=== PATIENT | female | born 1965 | race Caucasian/White ===

== ENCOUNTER 2017-09-12 14:15 | Emergency (ER) | payer BC, OTHER ==
[2017-09-12] MEDS ORDERED: PROVENTIL 2.5 MG/3 ML NEB IH ONE ×2 (14:47→15:22)
[2017-09-12] MEDS ORDERED: ZOFRAN ODT 4 MG PO ONE (14:53)
--- NOTE | 2017-09-12 14:53 | ERPHSYRPT ---
- History of Present Illness Time Seen by Provider: 09/12/17 14:41 Source: patient, family Patient Subjective Stated Complaint: PT REPORTS ALL OVER BODY ACHES BEGINNING YESTERAY-NASAL CONGESTION CLEAR IN COLOR-REPORTS UNSURE OF FEVER BUT FEELS HOT Triage Nursing Assessment: PT PINK WARM AND [id number] EASY AND NONLABORED- NO RETRACTIONS NOTED-PT STATES THAT SHE HAS ALL OVER BODY ACHES-NO COUGH NOTED DURING TRIAGE Physician History: CC: flu Hx: 52 y/o patient of dr Traylor with flu symptoms since last evening. She has fever, chills, cough, mylagias, headache. Took NSAIDS and fever now better. She vomited once. No diarrhea. She is a smoker. Timing/Duration: yesterday Allergies/Adverse Reactions: No Known Drug Allergies Allergy (Unverified 09/12/17 14:48) Home Medications: Dextroamphetamine/Amphetamine [Adderall 10 mg Tablet] 10 mg PO DAILY 09/12/17 [ History] Hx Tetanus, Diphtheria Vaccination/Date Given: Yes Hx Influenza Vaccination/Date Given: No Hx Pneumococcal Vaccination/Date Given: No Immunizations Up to Date: Yes - Review of Systems Constitutional: Fever, Chills, Malaise Eyes: No Symptoms Ears, Nose, & Throat: Nose Congestion, Throat Pain Respiratory: Cough Cardiac: No Chest Pain Abdominal/Gastrointestinal: Vomiting (X1), No Abdominal Pain, No Diarrhea Genitourinary Symptoms: No Dysuria Skin: No Rash Neurological: Headache All Other Systems: Reviewed and Negative - Past Medical History Pertinent Past Medical History: Yes Psycho-Social History: Attention Deficit Disorder - Past Surgical History Past Surgical History: Yes Musculoskeletal: Orthopedic Surgery - Social History Smoking Status: Current every day smoker How long have you smoked: YRS Exposure to second hand smoke: No Drug Use: none Patient Lives Alone: No - Female History Hx Now: No - Nursing Vital Signs Nursing Vital Signs: Initial Vital Signs Temperature 98.8 F 09/12/17 14:35 Pulse Rate 87 09/12/17 14:35 Respiratory Rate 20 09/12/17 14:35 Blood Pressure 113/80 09/12/17 14:35 O2 Sat by Pulse Oximetry 99 09/12/17 14:35 Pain Scale Pain Intensity 10 - Physical Exam General Appearance: alert Eye Exam: PERRL/EOMI Ears, Nose, Throat Exam: normal ENT inspection, TMs normal, moist mucous membranes Neck Exam: normal inspection, non-tender, supple Respiratory Exam: normal breath sounds, lungs clear Cardiovascular Exam: regular rate/rhythm, No murmur Gastrointestinal/Abdomen Exam: soft, No tenderness, No distention Extremity Exam: normal inspection, normal range of motion Neurologic Exam: alert, oriented x 3, cooperative, communication manager II-XII 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, nml station & gait, sensation nml, No motor deficits Skin Exam: warm, dry, No rash SpO2 Interpretation: normal SpO2: 99 Oxygen Delivery: Room Air - Course Nursing assessment & vital signs reviewed: Yes - Radiology Exams cxr X-ray Interpretation: Teleradiologist Report, Negative Ordered Tests: Active Orders 24 hr Category Date Time Status CHEST 2 VIEWS (PA AND LAT) Stat Exams 09/12/17 14:47 Completed Respiratory Nebulizer STAT RT 09/12/17 14:47 Active Medication Summary Discontinued Medications Generic Name Dose Route Start Last Admin Trade Name Freq PRN Reason Stop Dose Admin Albuterol Sulfate 2.5 mg 09/12/17 14:47 Proventil 2.5 Mg/3 Ml Neb IH 09/12/17 14:48 STAT ONE Ondansetron HCl 4 mg 09/12/17 14:53 Zofran Odt 4 Mg PO 09/12/17 14:54 STAT ONE - Progress Progress Note: 09/12/17 15:20 She has flu like symptoms. Stable. Symptom treatment encouraged. Offered tamiflu but she declines after discussing potential side effects. Counseled pt/family regarding: diagnosis, need for follow-up, rad results, smoking cessation - Departure Time of Disposition: 15:20 Departure Disposition: Home Clinical Impression: Influenza-like illness, Smoker Condition: Stable Critical Care Time: No Referrals: BERNADETTE TRAYLOR [Primary Care Provider] - Instructions: Flu, Adult (DC), Quitting Smoking Additional Instructions: UPPER RESPIRATORY INFECTIONS 1. The signs and symptoms of a cold may last up to 10 days. These illnesses are due to viruses which are not treatable with antibiotics. 2. The following suggestions can aid in recovery and to minimize symptoms: A. Increase fluid intake. B. Acetaminophen or Ibuprofen as directed. C. Avoid smoking environments as this will increase the risk of developing pneumonia. D. For children, may use a cool mist vaporizer in the child's room. 3. Contact your Family Physician if you note: A. Persisten fever >103 for more than 3 days B. Breathing difficulty C. Productive cough of yellow/green sputum D. Illness greater than 7 days E. Persistent vomiting F. Stiff neck Rx albuterol MDI- sent to [facility]. Push oral fluids. Follow up with Dr Traylor if not better in one week or for concerns. Prescriptions: Albuterol Sulfate [Albuterol Sulfate Hfa] 2 puff IH Q4-6HPRN PRN #1 [email or web address] PRN Reason: cough or wheeze
--- NOTE | 2017-09-12 15:12 | XRAY ---
Indication: Cough, congestion, and bodyaches. Comparison: None PA/lateral chest demonstrates normal heart and lungs with a few incidental calcified granulomas. Bony thorax intact with previous right shoulder surgery.
[2017-09-12] MEDS ORDERED: ZOFRAN ODT 4 MG ONE (15:21)
[2017-09-12 15:33] VITALS: BP 134/87
[2017-09-12 15:40] VITALS: PULSE 80; O2SAT 98
== END 2017-09-12 15:52 | disposition home or self-care (01) ==
LOC: ED 14:15
DX: J11.1 Influenza due to unidentified influenza virus with other respiratory manifestations (principal); F17.200 Nicotine dependence, unspecified, uncomplicated
CPT/HCPCS: 71046; 94640; 99283; 99284; Q0162; A9270-GY

== ENCOUNTER 2017-09-19 07:22 | Emergency (ER) | payer OTHER ==
[2017-09-19 07:35] VITALS: O2SAT 97
[2017-09-19] MEDS ORDERED: Vistaril 50 MG/ML IM ONE (07:50)
[2017-09-19] MEDS ORDERED: TORAdol 30 mg Injection IV ONE (07:51)
[2017-09-19] MEDS ORDERED: Lactated Ringers 1,000 ML IV ONE ×2 (07:52→08:00)
[2017-09-19] MEDS ORDERED: DUONEB 0.5-3 MG/3 ml Neb IH ONE ×2 (07:52→08:10)
--- NOTE | 2017-09-19 07:59 | ERPHSYRPT ---
- History of Present Illness Time Seen by Provider: 09/19/17 07:32 Source: patient, family Patient Subjective Stated Complaint: Cough, generalized pain Triage Nursing Assessment: Pt presents to the ED with complaints of generalized aches, pain with deep breathing, and cough. Pt states onset 1 week ago, states worsening since onset. Pt denies other complaints at this time, no distress noted, skin pwd, pt A&O x4. Physician History: CC: cough HX: 52 y/o patient of Dr Traylor. She was here one week ago with influenza like syndrome. She used alb MDI. Went back to work yesterday. Had diarrhea Monday and Monday. She has no fever but has chills. She continues to have cough, severe myalgias, face hurts, ears pressure, hurts all over. Muscle cramping is severe. She is a smoker. She works at [employer]. Timing/Duration: week(s) (1) Cough Quality/Degree: moderate, severe, productive cough Allergies/Adverse Reactions: No Known Drug Allergies Allergy (Unverified 09/12/17 14:48) Home Medications: Dextroamphetamine/Amphetamine [Adderall 10 mg Tablet] 10 mg PO DAILY 09/12/17 [ History] Hx Tetanus, Diphtheria Vaccination/Date Given: Yes Hx Influenza Vaccination/Date Given: No Hx Pneumococcal Vaccination/Date Given: No Immunizations Up to Date: No - Review of Systems Constitutional: Chills, Fatigue, Malaise, Weakness, No Fever Eyes: No Symptoms Ears, Nose, & Throat: Nose Congestion, Throat Pain Respiratory: Cough Cardiac: Chest Pain (with coughing) Abdominal/Gastrointestinal: Diarrhea (gone now), No Abdominal Pain, No Nausea, No Vomiting Genitourinary Symptoms: No Dysuria Musculoskeletal: Joint Pain, Myalgias Skin: No Rash Neurological: Headache, No Focal Weakness, No Parasthesia All Other Systems: Reviewed and Negative - Past Medical History Pertinent Past Medical History: Yes Psycho-Social History: Attention Deficit Disorder - Past Surgical History Past Surgical History: Yes Musculoskeletal: Orthopedic Surgery - Social History Smoking Status: Current every day smoker How long have you smoked: 40 Exposure to second hand smoke: Yes Drug Use: none Patient Lives Alone: No (works [employer]) - Female History Hx Last Menstrual Period: 09/17/2017 Hx Now: No - Nursing Vital Signs Nursing Vital Signs: Initial Vital Signs Temperature 98.0 F 09/19/17 07:30 Pulse Rate 76 09/19/17 07:30 Respiratory Rate 22 09/19/17 07:30 Blood Pressure 114/73 09/19/17 07:30 O2 Sat by Pulse Oximetry 97 09/19/17 07:30 Pain Scale Pain Intensity 10 - Physical Exam General Appearance: alert, thin, other (coughing and uncomfortable appearing) Eye Exam: PERRL/EOMI Ears, Nose, Throat Exam: moist mucous membranes Neck Exam: normal inspection, non-tender, supple, No meningismus Respiratory Exam: rhonchi, No respiratory distress Cardiovascular Exam: regular rate/rhythm, No murmur Gastrointestinal/Abdomen Exam: soft, No tenderness, No distention Back Exam: normal inspection Extremity Exam: normal inspection, normal range of motion Neurologic Exam: alert, oriented x 3, cooperative, nurse specialist II-XII 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, sensation nml, No motor deficits Skin Exam: warm, dry, No rash SpO2 Interpretation: normal SpO2: 97 Oxygen Delivery: Room Air - Course Nursing assessment & vital signs reviewed: Yes - Radiology Exams cxr X-ray Interpretation: Teleradiologist Report (new right lower lobe infiltrate/ atelectasis and minimal left base fibrosis/scarring.) Ordered Tests: Active Orders 24 hr Category Date Time Status Clean Catch Urine Specimen STAT Care 09/19/17 07:50 Active IV Insertion STAT Care 09/19/17 07:50 Active CHEST 2 VIEWS (PA AND LAT) Stat Exams 09/19/17 07:51 Completed CBC W DIFF Stat Lab 09/19/17 08:12 Completed CK-Creatinine Phosphokinase Stat Lab 09/19/17 08:12 Completed CMP Stat Lab 09/19/17 08:12 Completed Lactic Acid Stat Lab 09/19/17 08:00 Completed MAGNESIUM Stat Lab 09/19/17 08:12 Completed UA W/RFX UR CULTURE Stat Lab 09/19/17 08:45 Completed Respiratory Nebulizer STAT RT 09/19/17 07:53 Completed Medication Summary Discontinued Medications Generic Name Dose Route Start Last Admin Trade Name Freq PRN Reason Stop Dose Admin Albuterol/Ipratropium 3 ml 09/19/17 07:52 09/19/17 08:17 Duoneb 0.5-3 Mg/3 Ml Neb IH 09/19/17 07:53 3 ml STAT ONE Administration Albuterol/Ipratropium Confirm 09/19/17 08:10 Duoneb 0.5-3 Mg/3 Ml Neb Administered 09/19/17 08:11 Dose 3 ml IH .STK-MED ONE Hydroxyzine HCl Confirm 09/19/17 08:00 Vistaril 100mg/2ml Administered 09/19/17 08:01 Dose 100 mg IM .STK-MED ONE Hydroxyzine HCl 50 mg 09/19/17 08:15 09/19/17 08:06 Vistaril 100mg/2ml IM 09/19/17 08:16 50 mg STAT ONE Administration Lactated Ringer's 1,000 mls @ 999 mls/hr 09/19/17 07:52 09/19/17 08:03 Lactated Ringers IV 09/19/17 08:52 999 mls/hr .Q1H1M ONE Administration Lactated Ringer's Confirm 09/19/17 08:00 Lactated Ringers Administered 09/19/17 08:01 Dose 1,000 mls @ ud IV .STK-MED ONE Ketorolac Tromethamine 30 mg 09/19/17 07:51 09/19/17 08:02 Toradol 30 Mg Injection IV 09/19/17 07:52 30 mg STAT ONE Administration Ketorolac Tromethamine Confirm 09/19/17 08:00 Toradol 30 Mg Injection Administered 09/19/17 08:01 Dose 30 mg .ROUTE .STK-MED ONE Lab/Rad Data: Laboratory Result Diagrams 09/19/17 08:12 09/19/17 08:12 Laboratory Results 09/19/17 09/19/17 09/19/17 Range/Units 08:45 08:12 08:12 WBC 10.7 H (4.0-10.5) K/mm3 RBC 4.23 (4.1-5.4) M/mm3 Hgb 13.1 (12.0-16.0) gm/dl Hct 39.0 (35-47) % MCV 92.2 (78-100) fl MCH 31.0 (26-32) pg MCHC 33.6 (32-36) g/dl RDW 12.5 (11.5-14.0) % Plt Count 209 (150-450) K/mm3 MPV 10.2 H (6-9.5) fl Gran % 85.4 H (36.0-66.0) % Lymphocytes % 7.9 L (24.0-44.0) % Monocytes % 6.1 (0.0-12.0) % Eosinophils % 0.5 (0.00-5.0) % Basophils % 0.1 (0.0-0.4) % Basophils # 0.01 (0-0.4) Sodium 135 L (136-145) mEq/L Potassium 4.3 (3.5-5.1) mEq/L Chloride 101 (98-107) mEq/L Carbon Dioxide 25.9 (21-32) mEq/L Anion Gap 12.1 (5-15) MEQ/L BUN 9 (9-20) mg/dL Creatinine 0.63 (0.55-1.30) mg/dl Estimated GFR > 60 ML/MIN Glucose 106 (70-110) MG/DL Lactic Acid (0.4-2.0) Calcium 8.3 L (8.5-10.1) mg/dL Magnesium 2.0 (1.8-2.4) mg/dL Total Bilirubin 0.30 (0.2-1.0) mg/dL AST 19 (15-37) U/L ALT 20 (12-78) U/L Alkaline Phosphatase 85 (46-116) U/L Creatine Kinase 73 (26-192) U/L Serum Total Protein 7.0 (6.4-8.2) gm/dL Albumin 3.2 L (3.4-5.0) g/dL Ur Collection Type VOID Urine Color YELLOW (YELLOW) Urine Appearance CLEAR (CLEAR) Urine pH 6.0 (5-6) Ur Specific Crane 1.005 (1.005-1.025) Urine Protein NEGATIVE (Negative) Urine Ketones MODERATE (NEGATIVE) Urine Blood NEGATIVE (0-5) Faisal/ul Urine Nitrite NEGATIVE (NEGATIVE) Urine Bilirubin NEGATIVE (NEGATIVE) Urine Urobilinogen NORMAL (0-1) mg/dL Ur Leukocyte Esterase NEGATIVE (NEGATIVE) Urine Culture Reflexed NO (NO) Urine Glucose NEGATIVE (NEGATIVE) mg/dL Specimen Received 09/19/17 0850 09/19/17 Range/Units 08:00 WBC (4.0-10.5) K/mm3 RBC (4.1-5.4) M/mm3 Hgb (12.0-16.0) gm/dl Hct (35-47) % MCV (78-100) fl MCH (26-32) pg MCHC (32-36) g/dl RDW (11.5-14.0) % Plt Count (150-450) K/mm3 MPV (6-9.5) fl Gran % (36.0-66.0) % Lymphocytes % (24.0-44.0) % Monocytes % (0.0-12.0) % Eosinophils % (0.00-5.0) % Basophils % (0.0-0.4) % Basophils # (0-0.4) Sodium (136-145) mEq/L Potassium (3.5-5.1) mEq/L Chloride (98-107) mEq/L Carbon Dioxide (21-32) mEq/L Anion Gap (5-15) MEQ/L BUN (9-20) mg/dL Creatinine (0.55-1.30) mg/dl Estimated GFR ML/MIN Glucose (70-110) MG/DL Lactic Acid 0.8 (0.4-2.0) Calcium (8.5-10.1) mg/dL Magnesium (1.8-2.4) mg/dL Total Bilirubin (0.2-1.0) mg/dL AST (15-37) U/L ALT (12-78) U/L Alkaline Phosphatase (46-116) U/L Creatine Kinase (26-192) U/L Serum Total Protein (6.4-8.2) gm/dL Albumin (3.4-5.0) g/dL Ur Collection Type Urine Color (YELLOW) Urine Appearance (CLEAR) Urine pH (5-6) Ur Specific Crane (1.005-1.025) Urine Protein (Negative) Urine Ketones (NEGATIVE) Urine Blood (0-5) Faisal/ul Urine Nitrite (NEGATIVE) Urine Bilirubin (NEGATIVE) Urine Urobilinogen (0-1) mg/dL Ur Leukocyte Esterase (NEGATIVE) Urine Culture Reflexed (NO) Urine Glucose (NEGATIVE) mg/dL Specimen Received - Progress Progress Note: 09/19/17 09:04 CURB 65 score 0 which is low risk. Will cover for CAP. Instr given. Counseled pt/family regarding: lab results, diagnosis, need for follow-up, rad results, smoking cessation - Departure Time of Disposition: 09:04 Departure Disposition: Home Clinical Impression: Pneumonia, Influenza-like illness, Smoker Condition: Stable Critical Care Time: No Referrals: BERNADETTE TRAYLOR [Primary Care Provider] - Instructions: Pneumonia, Adult (DC) Additional Instructions: Rx albuterol MDI. Rx doxycycline. Rx hydroxyzine. Rx ibuprofen. Follow up Monday with Dr Traylor. Prescriptions: Hydroxyzine HCl 1 tab PO Q6H PRN PRN #10 tablet PRN Reason: rash,rest Ibuprofen 1 tab PO Q6H PRN PRN #20 tablet PRN Reason: pain Albuterol Sulfate [Albuterol Sulfate Hfa] 2 puff IH Q4-6HPRN PRN #1 hfa.[email or web address] PRN Reason: cough or wheeze Doxycycline Hyclate 100 mg [Vibramycin 100 MG] 1 tab PO BID #20 tab
[2017-09-19] MEDS ORDERED: VISTARIL 100MG/2ML IM ONE ×2 (08:00→08:15)
[2017-09-19] MEDS ORDERED: TORAdol 30 mg Injection ONE (08:00)
[2017-09-19 08:15] LABS: BASOPHIL % 0.1 % (0.0-0.4); Basophil (Absolute #) 0.01 (0-0.4); Eosinophil % 0.5 % (0.00-5.0); Eosinophil (Absolute #) 0.05 (0-0.5); Granulocyte Absolute (ANC) 9.17 (1.4-6.9); Granulocytes % 85.4 % (36.0-66.0); Hemoglobin 13.1 gm/dl (12.0-16.0); Lymphocyte (Absolute #) 0.85 (1.0-4.6); Lymphocytes % 7.9 % (24.0-44.0); Mean Cell Volume 92.2 fl (78-100); Mean Corpuscular Hgb Concent. 33.6 g/dl (32-36); Mean Platelet Volume 10.2 fl (6-9.5); Monocyte (Absolute #) 0.66 (0.0-1.3); Monocytes % 6.1 % (0.0-12.0); Platelet Count 209 K/mm3 (150-450); Red Blood Count 4.23 M/mm3 (4.1-5.4); Red Cell Distribution Width 12.5 % (11.5-14.0); White Blood Count 10.7 K/mm3 (4.0-10.5)
[2017-09-19 08:43] LABS: ALBUMIN 3.2 g/dL (3.4-5.0); ALKALINE PHOSPHATASE 85 U/L (46-116); ANION GAP 12.1 MEQ/L (5-15); BLOOD UREA NITROGEN 9 mg/dL (9-20); CHLORIDE 101 mEq/L (98-107); CK-Creatinine Phosphokinase 73 U/L (26-192); Calcium 8.3 mg/dL (8.5-10.1); Carbon Dioxide 25.9 mEq/L (21-32); Creatinine 1 0.63 mg/dl (0.55-1.30); EST GLOMERULAR FILTRATION RATE > 60 ML/MIN; Glucose 106 MG/DL (70-110); Potassium 4.3 mEq/L (3.5-5.1); SGOT/AST 19 U/L (15-37); SGPT/ALT 20 U/L (12-78); SODIUM 135 mEq/L (136-145)
--- NOTE | 2017-09-19 08:56 | XRAY ---
Indication: Short of breath and cough. Comparison: September 12, 2017. PA/lateral chest demonstrates new right lower lobe infiltrate/atelectasis and minimal left base fibrosis/scarring. Remaining heart and lungs unremarkable. Bony thorax intact again with right shoulder surgery.
[2017-09-19 08:57] LABS: Appearance CLEAR (CLEAR); Bilirubin NEGATIVE (NEGATIVE); Blood NEGATIVE Ery/ul (0-5); Glucose NEGATIVE (NEGATIVE); Ketones MODERATE (NEGATIVE); Leukocyte Esterase NEGATIVE (NEGATIVE); Nitrite NEGATIVE (NEGATIVE); Protein,Urine Dip NEGATIVE (Negative); Specific Gravity 1.005 (1.005-1.025); Urobilinogen NORMAL mg/dL (0-1)
[2017-09-19 09:05] VITALS: BP 104/66; PULSE 74
== END 2017-09-19 09:34 | disposition home or self-care (01) ==
LOC: ED 07:22
DX: J18.9 Pneumonia, unspecified organism (principal); J11.1 Influenza due to unidentified influenza virus with other respiratory manifestations; F17.200 Nicotine dependence, unspecified, uncomplicated
CPT/HCPCS: 36000; 36415; 71046; 80053; 81002; 82550; 83605; 83735; 85025; 94150; 94640; 96360; 96372; 96374; 99284; J1885; J3410; A9270-GY

== ENCOUNTER 2017-09-22 15:31 | Inpatient (IN) | payer OTHER ==
[2017-09-22] MEDS ORDERED: DUONEB 0.5-3 MG/3 ml Neb IH (16:06)
[2017-09-22] MEDS: DUONEB 0.5-3 MG/3 ml Neb IH ×2 (16:09→22:53)
[2017-09-22 16:13] LABS: BASOPHIL % 0.1 % (0.0-0.4); Basophil (Absolute #) 0.02 (0-0.4); Eosinophil % 0.8 % (0.00-5.0); Eosinophil (Absolute #) 0.11 (0-0.5); Granulocyte Absolute (ANC) 11.19 (1.4-6.9); Hematocrit 37.2 % (35-47); Hemoglobin 12.8 gm/dl (12.0-16.0); Lymphocyte (Absolute #) 1.46 (1.0-4.6); Lymphocytes % 10.4 % (24.0-44.0); Mean Cell Volume 92.1 fl (78-100); Mean Corpuscular Hgb Concent. 34.4 g/dl (32-36); Mean Platelet Volume 9.8 fl (6-9.5); Monocyte (Absolute #) 1.22 (0.0-1.3); Monocytes % 8.7 % (0.0-12.0); Platelet Count 399 K/mm3 (150-450); Red Blood Count 4.04 M/mm3 (4.1-5.4); Red Cell Distribution Width 12.6 % (11.5-14.0)
[2017-09-22 16:20] LABS: ADD MANUAL DIFF? NO (NO); Mean Corpuscular Hemoglobin 31.6 pg (26-32)
[2017-09-22 16:21] LABS: ANION GAP 16.1 MEQ/L (5-15); BLOOD UREA NITROGEN 5 mg/dL (9-20); CHLORIDE 105 mEq/L (98-107); Calcium 8.6 mg/dL (8.5-10.1); Carbon Dioxide 26.5 mEq/L (21-32); Creatinine 1 0.61 mg/dl (0.55-1.30); EST GLOMERULAR FILTRATION RATE > 60 ML/MIN; Glucose 91 MG/DL (70-110); Potassium 4.2 mEq/L (3.5-5.1); SODIUM 143 mEq/L (136-145)
[2017-09-22] MEDS: Sodium Chloride 0.9% 1000 ML 1,000 ML IV (16:21)
[2017-09-22] MEDS: ROCEPHIN 1 Gm-D5w 50 ml Bag** 1 G/50 ML IVPB IV (16:22)
[2017-09-22 16:37] LABS: INFLUENZA A NEGATIVE (NEGATIVE)
[2017-09-22 16:37] LABS: INFLUENZA B NEGATIVE (NEGATIVE); RESPIRATORY SYNCTIAL VIRUS NEGATIVE (Negative)
[2017-09-22] MEDS ORDERED: HYDROXYZINE HCL PO (16:50)
[2017-09-22] MEDS: Zithromax 500 MG/ 250 ML NaCl Premix 500 MG/250 ML IVPB IV (17:28)
[2017-09-22] MEDS: MOTRIN 600 MG PO (17:32)
[2017-09-23] MEDS: Sodium Chloride 0.9% 1000 ML 1,000 ML IV ×2 (02:12→20:03)
[2017-09-23] MEDS: MOTRIN 600 MG PO ×2 (02:13→16:58)
[2017-09-23] MEDS: DUONEB 0.5-3 MG/3 ml Neb IH ×3 (07:31→19:22)
[2017-09-23] MEDS ORDERED: TYLENOL 325 MG PO (09:02)
[2017-09-23] MEDS: ROCEPHIN 1 Gm-D5w 50 ml Bag** 1 G/50 ML IVPB IV (10:56)
[2017-09-23] MEDS: FLUCELVAX QUAD 2017-2018 SYR IM (11:00)
[2017-09-23] MEDS: Zithromax 500 MG/ 250 ML NaCl Premix 500 MG/250 ML IVPB IV (12:19)
[2017-09-23] MEDS: Robitussin 100 MG/5 ML PO (12:42)
[2017-09-23] MEDS: ATARAX 25 MG PO (21:51)
[2017-09-24] MEDS: DUONEB 0.5-3 MG/3 ml Neb IH ×5 (00:51→19:09)
[2017-09-24] MEDS: MOTRIN 600 MG PO ×2 (05:03→11:07)
[2017-09-24 05:29] LABS: BASOPHIL % 0.5 % (0.0-0.4); Basophil (Absolute #) 0.03 (0-0.4); Eosinophil % 2.7 % (0.00-5.0); Eosinophil (Absolute #) 0.15 (0-0.5); Granulocyte Absolute (ANC) 3.49 (1.4-6.9); Hematocrit 33.7 % (35-47); Hemoglobin 11.2 gm/dl (12.0-16.0); Lymphocytes % 23.1 % (24.0-44.0); Mean Cell Volume 94.1 fl (78-100); Mean Corpuscular Hgb Concent. 33.2 g/dl (32-36); Mean Platelet Volume 9.4 fl (6-9.5); Monocyte (Absolute #) 0.66 (0.0-1.3); Monocytes % 11.7 % (0.0-12.0); Platelet Count 386 K/mm3 (150-450); Red Blood Count 3.58 M/mm3 (4.1-5.4); Red Cell Distribution Width 12.9 % (11.5-14.0); White Blood Count 5.6 K/mm3 (4.0-10.5)
[2017-09-24 05:32] LABS: ADD MANUAL DIFF? NO (NO); Mean Corpuscular Hemoglobin 31.2 pg (26-32)
[2017-09-24 05:40] LABS: ANION GAP 13.1 MEQ/L (5-15); BLOOD UREA NITROGEN 9 mg/dL (9-20); CHLORIDE 111 mEq/L (98-107); Carbon Dioxide 25.1 mEq/L (21-32); Creatinine 1 0.59 mg/dl (0.55-1.30); EST GLOMERULAR FILTRATION RATE > 60 ML/MIN; Glucose 92 MG/DL (70-110); Potassium 4.1 mEq/L (3.5-5.1); SODIUM 145 mEq/L (136-145)
[2017-09-24] MEDS: Zithromax 500 MG/ 250 ML NaCl Premix 500 MG/250 ML IVPB IV (09:49)
[2017-09-24] MEDS: ROCEPHIN 1 Gm-D5w 50 ml Bag** 1 G/50 ML IVPB IV (09:49)
[2017-09-24] MEDS: Tussionex Pennkinetic Susp PO ×2 (11:07→21:28)
[2017-09-24] MEDS: ATARAX 25 MG PO (21:28)
[2017-09-25] MEDS: Sodium Chloride 0.9% 1000 ML 1,000 ML IV (01:05)
[2017-09-25] MEDS: DUONEB 0.5-3 MG/3 ml Neb IH ×2 (02:32→06:48)
[2017-09-25] MEDS: Tussionex Pennkinetic Susp PO (08:48)
[2017-09-25] MEDS: ROCEPHIN 1 Gm-D5w 50 ml Bag** 1 G/50 ML IVPB IV (10:36)
[2017-09-25] MEDS: Zithromax 500 MG/ 250 ML NaCl Premix 500 MG/250 ML IVPB IV (10:36)
== END 2017-09-25 10:10 | disposition home or self-care (01) ==
LOC: MED SURG 15:31
CPT/HCPCS: 36415; 71046; 80048; 85025; 87631; 87798; 94150; 94640; 94760; G0008; J0456; J0696

== ENCOUNTER 2019-07-30 14:44 | Emergency (ER) | payer OTHER ==
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
[2019-07-30] MEDS ORDERED: MOTRIN 400 MG ONE (15:10)
[2019-07-30] MEDS: MOTRIN 400 MG PO ONE (15:11)
[2019-07-30 15:17] LABS: Absolute Neutrophil Ct (ANC) 3.25 (1.4-6.9); BASOPHIL % 0.7 % (0.0-0.4); Basophil (Absolute #) 0.04 (0-0.4); Eosinophil % 1.4 % (0.00-5.0); Eosinophil (Absolute #) 0.08 (0-0.5); Hematocrit 43.6 % (35-47); Hemoglobin 14.7 gm/dl (12.0-16.0); Lymphocyte (Absolute #) 1.93 (1.0-4.6); Lymphocytes % 34.5 % (24.0-44.0); Mean Cell Volume 94.8 fl (78-100); Mean Corpuscular Hgb Concent. 33.7 g/dl (32-36); Mean Platelet Volume 9.4 fl (6-9.5); Monocytes % 5.4 % (0.0-12.0); Platelet Count 296 K/mm3 (150-450); Red Cell Distribution Width 13.8 % (11.5-14.0); White Blood Count 5.6 K/mm3 (4.0-10.5)
[2019-07-30 15:19] LABS: Appearance CLEAR (CLEAR); Bilirubin NEGATIVE (NEGATIVE); Blood NEGATIVE Ery/ul (0-5); Glucose NEGATIVE (NEGATIVE); Ketones NEGATIVE (NEGATIVE); Leukocyte Esterase NEGATIVE (NEGATIVE); Mucus SLIGHT /HPF (NEGATIVE); Nitrite NEGATIVE (NEGATIVE); Protein,Urine Dip NEGATIVE (Negative); Specific Gravity 1.002 (1.005-1.025); Urobilinogen NEGATIVE mg/dL (0-1)
[2019-07-30 15:28] LABS: ALBUMIN 4.7 g/dL (3.5-5.0); ALKALINE PHOSPHATASE 71 U/L (38-126); ANION GAP 11.5 MEQ/L (5-15); BLOOD UREA NITROGEN 9 mg/dL (7-17); CHLORIDE 110 mmol/L (98-107); Calcium 9.6 mg/dL (8.4-10.2); Carbon Dioxide 30 mmol/L (22-30); Creatinine 1 0.59 mg/dL (0.52-1.04); ETHYL ALCOHOL 266 mg/dL (0-10); Glucose 99 mg/dL (74-106); Potassium 3.7 mmol/L (3.5-5.1); SGOT/AST 34 U/L (14-36); SGPT/ALT 17 U/L (0-35); SODIUM 148 mmol/L (137-145); Total Protein 8.4 g/dL (6.3-8.2)
[2019-07-30 15:32] LABS: Amphetamine,Urine NEGATIVE (NEGATIVE); Barbiturate,Urine NEGATIVE (NEGATIVE); Benzodiazepine,Urine NEGATIVE (NEGATIVE); Cocaine,Urine NEGATIVE (NEGATIVE); Methadone,Urine NEGATIVE (NEGATIVE); Opiate,Urine NEGATIVE (NEGATIVE); PCP,Urine NEGATIVE (NEGATIVE); THC,Urine NEGATIVE (NEGATIVE)
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
[2019-07-30 16:18] VITALS: BP 116/75; PULSE 74; O2SAT 93
== END 2019-07-30 16:25 | disposition home or self-care (01) ==
LOC: ED 14:44
DX: S13.9XXA Sprain of joints and ligaments of unspecified parts of neck, initial encounter (principal); S40.012A Contusion of left shoulder, initial encounter; S20.212A Contusion of left front wall of thorax, initial encounter; V89.2XXA Person injured in unspecified motor-vehicle accident, traffic, initial encounter
CPT/HCPCS: 36415; 71046; 72040; 73000; 80053; 80307; 81001; 85025; 99285; L0172; A9270-GY; G0480

== ENCOUNTER 2020-04-07 14:25 | Emergency (ER) | payer OTHER ==
[2020-04-07] MEDS ORDERED: XYLOCAINE 1% HCL 20 ML MDV IJ ONE (14:26)
[2020-04-07 14:35] VITALS: BP 144/88
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
[2020-04-07] MEDS ORDERED: Rocephin 1000 MG INJ IM ONE (14:45)
[2020-04-07] MEDS ORDERED: Rocephin 1000 MG INJ ONE (14:47)
[2020-04-07 15:08] VITALS: PULSE 82; O2SAT 98
== END 2020-04-07 15:13 | disposition home or self-care (01) ==
LOC: ED 14:25
DX: J32.9 Chronic sinusitis, unspecified (principal)
CPT/HCPCS: 96372; 99283; J0696

== ENCOUNTER 2020-08-25 07:12 | Day surgery (SDC) | payer OTHER ==
[2020-08-25 07:53] VITALS: O2SAT 100
[2020-08-25] MEDS ORDERED: Lactated Ringers 1,000 ML IV SCH (08:00)
[2020-08-25] MEDS ORDERED: CEFAZOLIN 2 GM-D5W BAG** 2 GM/50 ML ML IV SCH (08:00)
[2020-08-25 08:20] LABS: Hematocrit 40.6 % (35-47); Hemoglobin 13.3 gm/dl (12.0-16.0); Mean Cell Volume 94.6 fl (78-100); Mean Corpuscular Hgb Concent. 32.8 g/dl (32-36); Mean Platelet Volume 10.1 fl (7.5-11.0); Platelet Count 228 K/mm3 (150-450); Red Blood Count 4.29 M/mm3 (4.1-5.4); Red Cell Distribution Width 12.6 % (11.5-14.0); White Blood Count 3.9 K/mm3 (4.0-10.5)
[2020-08-25 08:22] LABS: ALBUMIN 3.6 g/dL (3.5-5.0); ALKALINE PHOSPHATASE 72 U/L (38-126); ANION GAP 7.6 MEQ/L (5-15); BLOOD UREA NITROGEN 13 mg/dL (7-17); CHLORIDE 107 mmol/L (98-107); Calcium 8.8 mg/dL (8.4-10.2); Carbon Dioxide 25 mmol/L (22-30); Creatinine 1 0.55 mg/dL (0.52-1.04); EST GLOMERULAR FILTRATION RATE > 60.0 ML/MIN; Glucose 93 mg/dL (74-106); Potassium 4.1 mmol/L (3.5-5.1); SGOT/AST 26 U/L (14-36); SGPT/ALT 18 U/L (0-35); SODIUM 136 mmol/L (137-145); Total Protein 6.3 g/dL (6.3-8.2)
[2020-08-25] MEDS ORDERED: DIPRIVAN 200 MG/20 ML IV ONE (09:56)
[2020-08-25] MEDS ORDERED: Versed 2 MG/2 ML Injection ONE (09:56)
[2020-08-25] MEDS ORDERED: SUBLIMAZE 100 MCG/2 ML ONE (09:56)
[2020-08-25] MEDS ORDERED: XYLOCAINE 1%/Epi 1:100000 MDV 20 ML ONE (10:23)
[2020-08-25] MEDS ORDERED: ARZOL Silver Nitrate Applicator TP ONE (10:25)
[2020-08-25 11:46] LABS: Appearance CLEAR (CLEAR); Bilirubin NEGATIVE (NEGATIVE); Blood NEGATIVE Ery/ul (0-5); Glucose NEGATIVE (NEGATIVE); Ketones NEGATIVE (NEGATIVE); Leukocyte Esterase NEGATIVE (NEGATIVE); Nitrite NEGATIVE (NEGATIVE); Protein,Urine Dip NEGATIVE (Negative); Specific Gravity 1.005 (1.005-1.025); Urobilinogen NEGATIVE mg/dL (0-1)
[2020-08-25] MEDS ORDERED: NORCO 5/325 MG PO ONE (12:09)
[2020-08-25 12:21] VITALS: PULSE 67
[2020-08-25 12:51] LABS: Slide Review YES
[2020-08-25 12:55] VITALS: BP 128/85
--- NOTE | 2020-08-26 11:23 | OP ---
SURGERY DATE/TIME: 08/25/2020 1001 PREOPERATIVE DIAGNOSIS: Postmenopausal bleeding and cystocele. POSTOPERATIVE DIAGNOSIS: Postmenopausal bleeding and cystocele. PROCEDURE: Hysteroscopy D&C with anterior colporrhaphy. SURGEON: Niels Dale D.O. LABVIEW PROGRAMMER: Parth Bailey surgical device sales representative. ANESTHESIA: General. ESTIMATED BLOOD LOSS: Minimal. COMPLICATIONS: None. INDICATIONS: The risks, benefits, indications and alternatives of the procedure were reviewed with the patient prior to procedure. The patient understood the risk of infection, bleeding, bowel injury, bladder injury, ureteral injury, pelvic infection, thromboembolic disorder, possible incontinence and pelvic pain associated with the surgery. However desires to have this surgery as a possible need to alleviate her current medical condition. DESCRIPTION OF PROCEDURE AND FINDINGS: At this point the patient is taken to the operating room, given general sedation, placed in dorsal lithotomy position. Prepped and draped in the usual sterile fashion. A weighted speculum is then placed in the patient's vagina and the anterior lip of the cervix is grasped with a single tooth tenaculum. Endocervical dilators are advanced to the endocervical canal as a means to dilate the cervix and the uterus was sounded to approximately 8 to 9 cm. From this point the 5 mm hysteroscope was then placed in through the endocervical canal where visualization revealed no gross abnormalities. The hysteroscope was then removed. At this point a curette was then placed into the fundus of the uterus and curettage was performed in all quadrants of the uterus retrieving a moderate amount of tissue. From this point hemostasis was obtained. From this point all instruments were removed from the patient's vaginal region. At this time the cystocele was then undertaken. 1% lidocaine with epinephrine was then infiltrated under the anterior vaginal mucosa in the midline. A small incision was made in the vaginal mucosa just above the cervix and Metzenbaum scissors were then used to dissect the mucosa off the cystocele and cut the vaginal mucosa in the midline. The cut edges were held and splayed with a series of Allis clamps. The bladder was then dissected over along the lateral edges with a combination of sharp and blunt dissection displacing the vesicovaginal space. A series of 2-0 Vicryl interrupted sutures were then placed sequentially along the lateral fold through the vesicovaginal space and brought the bladder back while simultaneously bringing the lateral vaginal tissues together. The edges of vaginal mucosa were trimmed. The anterior vaginal tissues were then closed with running locked 2-0 Vicryl suture. At this point all instruments and laps were accounted for x2. The patient was then taken out of the dorsal lithotomy position and then taken to the recovery room in stable condition.
== END 2020-08-25 12:50 | disposition home or self-care (01) ==
LOC: SDC 07:12
PROVIDERS: ATTEND Obstetrics & Gynecology
DX: N95.0 Postmenopausal bleeding (principal); R93.89 Abnormal findings on diagnostic imaging of other specified body structures; N81.10 Cystocele, unspecified; Z79.899 Other long term (current) drug therapy
CPT/HCPCS: 36415; 80053; 81001; 84703; 85027; 87086; J0690; J2250; J2704; J3010; A9270-GY

== ENCOUNTER 2020-12-20 13:10 | Emergency (ER) | payer OTHER ==
--- NOTE | 2020-12-20 13:13 | ERPHSYRPT ---
- History of Present Illness Time Seen by Provider: 12/20/20 13:12 Source: patient Exam Limitations: no limitations Physician History: This is a 55-year-old white female who has history of ADDH and migraine headaches and was out all day in her yard, in the heat working. During the day she became nauseated, had a headache and vomited. She continues to have a mild headache, is nauseated and just feels weak today. She is concerned of excess exposure to heat and humidity. She denies chest pain. She denies shortness of breath. She has no abdominal pain. Timing/Duration: yesterday Severity: moderate Associated Symptoms: nausea, headaches, weakness, No shortness of breath, No chest pain, No fever Allergies/Adverse Reactions: No Known Drug Allergies Allergy (Verified 12/20/20 13:23) Home Medications: Dextroamphetamine/Amphetamine [Adderall 10 mg Tablet] 30 mg PO DAILY 09/12/17 [History] Montelukast Sodium 10 mg [Singulair 10 MG] 10 mg PO DAILY 08/17/20 [History] Hx Tetanus, Diphtheria Vaccination/Date Given: No Hx Influenza Vaccination/Date Given: No Hx Pneumococcal Vaccination/Date Given: No Travel Risk - International Travel Have you traveled outside of the country in past 3 weeks: No - Coronavirus Screening Are you exhibiting any of the following symptoms?: No Close contact with a COVID-19 positive Pt in past 14-21 Days: No - Review of Systems Constitutional: Weakness Eyes: No Symptoms Ears, Nose, & Throat: No Symptoms Respiratory: No Symptoms Cardiac: No Symptoms Abdominal/Gastrointestinal: Nausea, Vomiting, No Abdominal Pain, No Constipation Genitourinary Symptoms: No Symptoms Musculoskeletal: No Symptoms Skin: No Symptoms Neurological: Headache (Mild) Psychological: No Symptoms Endocrine: No Symptoms Hematologic/Lymphatic: No Symptoms Immunological/Allergic: No Symptoms All Other Systems: Reviewed and Negative - Past Medical History Pertinent Past Medical History: Yes Neurological History: Migraines ENT History: No Pertinent History Cardiac History: No Pertinent History Respiratory History: No Pertinent History Endocrine Medical History: No Pertinent History Musculoskeletal History: Other GI Medical History: No Pertinent History History: No Pertinent History Psycho-Social History: Attention Deficit Disorder Female Reproductive Disorders: No Pertinent History Other Medical History: right hand numbness from traumatic accident - Past Surgical History Past Surgical History: Yes Neuro Surgical History: No Pertinent History Cardiac: No Pertinent History Respiratory: No Pertinent History Gastrointestinal: No Pertinent History Genitourinary: No Pertinent History Musculoskeletal: Orthopedic Surgery Female Surgical History: Tubal Ligation Other Surgical History: right hand and right shoulder surgeries - Social History Smoking Status: Former smoker How long have you smoked: 40 Exposure to second hand smoke: Yes Drug Use: none Patient Lives Alone: No - Nursing Vital Signs Nursing Vital Signs: Initial Vital Signs Temperature 98.0 F 12/20/20 13:19 Pulse Rate 92 H 12/20/20 13:19 Respiratory Rate 18 12/20/20 13:19 Blood Pressure 123/84 12/20/20 13:19 O2 Sat by Pulse Oximetry 100 12/20/20 13:19 Pain Scale Pain Intensity 7 - Physical Exam General Appearance: no apparent distress, alert, anxiety Eye Exam: PERRL/EOMI, eyes nml inspection Ears, Nose, Throat Exam: normal ENT inspection, moist mucous membranes Neck Exam: normal inspection, non-tender, supple, full range of motion Respiratory Exam: normal breath sounds, lungs clear, airway intact, No chest tenderness, No respiratory distress Cardiovascular Exam: regular rate/rhythm, normal heart sounds, normal peripheral pulses Gastrointestinal/Abdomen Exam: soft, normal bowel sounds, No tenderness Pelvic Exam: not done Rectal Exam: not done Back Exam: normal inspection, normal range of motion, No CVA tenderness, No vertebral tenderness Extremity Exam: normal inspection, normal range of motion, pelvis stable Neurologic Exam: alert, oriented x 3, cooperative, 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, normal mood/affect, nml cerebellar function, nml station & gait, sensation nml Skin Exam: normal color, warm, dry Lymphatic Exam: No adenopathy SpO2 Interpretation: normal O2 Delivery: Room Air - Course Nursing assessment & vital signs reviewed: Yes Ordered Tests: Active Orders 24 hr Category Date Time Status IV Insertion STAT Care 12/20/20 13:28 Active CBC W DIFF Stat Lab 12/20/20 13:40 Completed CMP Stat Lab 12/20/20 13:40 Completed Lactic Acid Stat Lab 12/20/20 13:28 Completed UA W/RFX UR CULTURE Stat Lab 12/20/20 13:41 Completed Medication Summary Generic Name Dose Route Start Last Admin Trade Name Freq PRN Reason Stop Dose Admin Sodium Chloride 1,000 mls @ 999 mls/hr 12/20/20 13:28 12/20/20 13:44 Sodium Chloride 0.9% 1000 Ml IV 12/20/20 14:28 999 mls/hr .Q1H1M STA Administration Discontinued Medications Generic Name Dose Route Start Last Admin Trade Name Cesar PRN Reason Stop Dose Admin Sodium Chloride Confirm 12/20/20 13:43 Sodium Chloride 0.9% 1000 Ml Administered 12/20/20 13:44 Dose 1,000 mls @ ud .ROUTE .STK-MED ONE Ondansetron HCl 4 mg 12/20/20 13:28 12/20/20 13:44 Zofran 4 Mg/2 Ml Vial IV 12/20/20 13:29 4 mg STAT ONE Administration Ondansetron HCl Confirm 12/20/20 13:43 Zofran 4 Mg/2 Ml Vial Administered 12/20/20 13:44 Dose 4 mg .ROUTE .STK-MED ONE Lab/Rad Data: Laboratory Result Diagrams 12/20/20 13:40 12/20/20 13:40 Laboratory Results 12/20/20 12/20/20 12/20/20 Range/Units 13:41 13:40 13:40 WBC 4.0 (4.0-10.5) K/mm3 RBC 4.21 (4.1-5.4) M/mm3 Hgb 13.4 (12.0-16.0) gm/dl Hct 41.3 (35-47) % MCV 98.1 (78-100) fl MCH 31.8 (26-32) pg MCHC 32.4 (32-36) g/dl RDW 13.5 (11.5-14.0) % Plt Count 271 (150-450) K/mm3 MPV 9.7 (7.5-11.0) fl Gran % 52.5 (36.0-66.0) % Eos # (Auto) 0.18 (0-0.5) Absolute Lymphs (auto) 1.22 (1.0-4.6) Absolute Monos (auto) 0.47 (0.0-1.3) Lymphocytes % 30.3 (24.0-44.0) % Monocytes % 11.7 (0.0-12.0) % Eosinophils % 4.5 (0.00-5.0) % Basophils % 1.0 (0.0-0.4) % Absolute Granulocytes 2.11 (1.4-6.9) Basophils # 0.04 (0-0.4) Sodium 135 L (137-145) mmol/L Potassium 4.9 (3.5-5.1) mmol/L Chloride 101 (98-107) mmol/L Carbon Dioxide 26 (22-30) mmol/L Anion Gap 13.4 (5-15) MEQ/L BUN 16 (7-17) mg/dL Creatinine 0.91 (0.52-1.04) mg/dL Estimated GFR > 60.0 ML/MIN Glucose 98 (74-106) mg/dL Lactic Acid (0.4-2.0) Calcium 9.5 (8.4-10.2) mg/dL Total Bilirubin 1.10 (0.2-1.3) mg/dL AST 70 H (14-36) U/L ALT 49 H (0-35) U/L Alkaline Phosphatase 93 (38-126) U/L Serum Total Protein 7.4 (6.3-8.2) g/dL Albumin 4.5 (3.5-5.0) g/dL Urine Color YOGI (YELLOW) Urine Appearance SLIGHTLY CLOUDY (CLEAR) Urine pH 5.0 (5-6) Ur Specific [place] 1.033 (1.005-1.025) Urine Protein 30 (Negative) Urine Ketones TRACE (NEGATIVE) Urine Blood NEGATIVE (0-5) Faisal/ul Urine Nitrite NEGATIVE (NEGATIVE) Urine Bilirubin SMALL (NEGATIVE) Urine Urobilinogen 2 (0-1) mg/dL Ur Leukocyte Esterase NEGATIVE (NEGATIVE) Urine WBC (Auto) 3-5 (0-5) /HPF Urine RBC (Auto) 3-5 (0-2) /HPF U Hyaline Cast (Auto) 3-5 (0-2) /LPF U Epithel Cells (Auto) FEW (FEW) /HPF Urine Bacteria (Auto) NONE (NEGATIVE) /HPF Calcium Oxalate Crystal 11-25 (NEGATIVE) /HPF Urine Mucus (Auto) MODERATE (NEGATIVE) /HPF Urine Culture Reflexed NO (NO) Urine Glucose NEGATIVE (NEGATIVE) mg/dL 12/20/ Range/Units 13:28 WBC (4.0-10.5) K/mm3 RBC (4.1-5.4) M/mm3 Hgb (12.0-16.0) gm/dl Hct (35-47) % MCV (78-100) fl MCH (26-32) pg MCHC (32-36) g/dl RDW (11.5-14.0) % Plt Count (150-450) K/mm3 MPV (7.5-11.0) fl Gran % (36.0-66.0) % Eos # (Auto) (0-0.5) Absolute Lymphs (auto) (1.0-4.6) Absolute Monos (auto) (0.0-1.3) Lymphocytes % (24.0-44.0) % Monocytes % (0.0-12.0) % Eosinophils % (0.00-5.0) % Basophils % (0.0-0.4) % Absolute Granulocytes (1.4-6.9) Basophils # (0-0.4) Sodium (137-145) mmol/L Potassium (3.5-5.1) mmol/L Chloride (98-107) mmol/L Carbon Dioxide (22-30) mmol/L Anion Gap (5-15) MEQ/L BUN (7-17) mg/dL Creatinine (0.52-1.04) mg/dL Estimated GFR ML/MIN Glucose (74-106) mg/dL Lactic Acid 1.3 (0.4-2.0) Calcium (8.4-10.2) mg/dL Total Bilirubin (0.2-1.3) mg/dL AST (14-36) U/L ALT (0-35) U/L Alkaline Phosphatase (38-126) U/L Serum Total Protein (6.3-8.2) g/dL Albumin (3.5-5.0) g/dL Urine Color (YELLOW) Urine Appearance (CLEAR) Urine pH (5-6) Ur Specific [place] (1.005-1.025) Urine Protein (Negative) Urine Ketones (NEGATIVE) Urine Blood (0-5) Faisal/ul Urine Nitrite (NEGATIVE) Urine Bilirubin (NEGATIVE) Urine Urobilinogen (0-1) mg/dL Ur Leukocyte Esterase (NEGATIVE) Urine WBC (Auto) (0-5) /HPF Urine RBC (Auto) (0-2) /HPF U Hyaline Cast (Auto) (0-2) /LPF U Epithel Cells (Auto) (FEW) /HPF Urine Bacteria (Auto) (NEGATIVE) /HPF Calcium Oxalate Crystal (NEGATIVE) /HPF Urine Mucus (Auto) (NEGATIVE) /HPF Urine Culture Reflexed (NO) Urine Glucose (NEGATIVE) mg/dL - Progress Progress: improved, pain not gone completely, re-examined Counseled pt/family regarding: lab results, diagnosis, need for follow-up - Departure Departure Disposition: Home Clinical Impression: Dehydration, mild Condition: Stable Critical Care Time: No Referrals: BERNADETTE SAMAYOA [Primary Care Provider] - Additional Instructions: Drink plenty of fluids. Avoid fatty greasy spicy foods. Follow-up with your primary care physician as needed. Prescriptions: Ondansetron ODT 4 MG [Zofran Odt 4 mg] 4 mg PO Q6H PRN PRN #10 tab.rapdis PRN Reason: Vomiting
[2020-12-20 13:24] VITALS: BP 123/84; PULSE 92; O2SAT 100
[2020-12-20] MEDS ORDERED: Zofran 4 MG/2 ML VIAL ONE (13:43)
[2020-12-20] MEDS ORDERED: Sodium Chloride 0.9% 1000 ML 1,000 ML ONE (13:43)
[2020-12-20] MEDS: Sodium Chloride 0.9% 1000 ML 1,000 ML IV STA (13:44)
[2020-12-20] MEDS: Zofran 4 MG/2 ML VIAL IV ONE (13:44)
[2020-12-20 13:47] LABS: Absolute Neutrophil Ct (ANC) 2.11 (1.4-6.9); Basophil (Absolute #) 0.04 (0-0.4); Eosinophil % 4.5 % (0.00-5.0); Eosinophil (Absolute #) 0.18 (0-0.5); Hematocrit 41.3 % (35-47); Hemoglobin 13.4 gm/dl (12.0-16.0); Lymphocyte (Absolute #) 1.22 (1.0-4.6); Lymphocytes % 30.3 % (24.0-44.0); Mean Cell Volume 98.1 fl (78-100); Mean Corpuscular Hemoglobin 31.8 pg (26-32); Mean Corpuscular Hgb Concent. 32.4 g/dl (32-36); Mean Platelet Volume 9.7 fl (7.5-11.0); Monocyte (Absolute #) 0.47 (0.0-1.3); Monocytes % 11.7 % (0.0-12.0); Neutrophil % 52.5 % (36.0-66.0); Platelet Count 271 K/mm3 (150-450); Red Blood Count 4.21 M/mm3 (4.1-5.4); Red Cell Distribution Width 13.5 % (11.5-14.0)
[2020-12-20 13:55] LABS: ALBUMIN 4.5 g/dL (3.5-5.0); ALKALINE PHOSPHATASE 93 U/L (38-126); ANION GAP 13.4 MEQ/L (5-15); BLOOD UREA NITROGEN 16 mg/dL (7-17); CHLORIDE 101 mmol/L (98-107); Calcium 9.5 mg/dL (8.4-10.2); Carbon Dioxide 26 mmol/L (22-30); Creatinine 1 0.91 mg/dL (0.52-1.04); EST GLOMERULAR FILTRATION RATE > 60.0 ML/MIN; Glucose 98 mg/dL (74-106); Potassium 4.9 mmol/L (3.5-5.1); SGOT/AST 70 U/L (14-36); SGPT/ALT 49 U/L (0-35); SODIUM 135 mmol/L (137-145); Total Protein 7.4 g/dL (6.3-8.2)
[2020-12-20 14:08] LABS: Appearance SLIGHTLY CLOUDY (CLEAR); Bilirubin SMALL (NEGATIVE); Blood NEGATIVE Ery/ul (0-5); Epithelial Cells FEW /HPF (FEW); Glucose NEGATIVE (NEGATIVE); Ketones TRACE (NEGATIVE); Leukocyte Esterase NEGATIVE (NEGATIVE); Mucus MODERATE /HPF (NEGATIVE); Nitrite NEGATIVE (NEGATIVE); Protein,Urine Dip 30 (Negative); Specific Gravity 1.033 (1.005-1.025); Urobilinogen 2 mg/dL (0-1)
[2020-12-20] MEDS ORDERED: solu-MEDROL 125 MG ONE (14:59)
[2020-12-20] MEDS: solu-MEDROL 125 MG IV ONE (15:00)
== END 2020-12-20 15:06 | disposition home or self-care (01) ==
LOC: ED 13:10
DX: J32.8 Other chronic sinusitis (principal); E86.0 Dehydration
CPT/HCPCS: 36000; 36415; 80053; 81001; 83605; 85025; 96360; 96374; 96375; 99284; J2405; J2930

== ENCOUNTER 2022-06-28 09:39 | Emergency (ER) | payer OTHER ==
[~2022-06-28 09:39] MED LIST: DIPRIVAN 200 MG/20 ML IV ONE; Ketamine HCl 50 MG/ML ONE; Lactated Ringers 1,000 ML IV ONE; Lactated Ringers 1,000 ML IV SCH; TORAdol 30 mg Injection ONE; Versed 2 MG/2 ML Injection IV ONE; Xylocaine-Mpf 2% 5 Ml Vial ONE
--- NOTE | 2022-06-28 10:43 | XRAY ---
Indication: Low back pain following fall. Multiple contiguous axial images obtained through the lumbar spine. Sagittal and coronal reformatted images obtained. Comparison: Lumbar radiograph May 02, 2007 Axial images negative for acute fracture, suspicious bony lesions, or spinal canal stenosis. Again L5-S1 degenerative vacuum disc phenomenon and opposing endplate sclerosis/spurring. Facets are symmetric. Sagittal and coronal reformatted images again demonstrate normal alignment with stable L5-S1 disc space loss. No acute compression fracture or subluxation. Visualized noncontrasted soft tissues demonstrates incidental 1.7 cm hepatic cyst. Impression: Stable L5-S1 degenerative changes. Incidental small hepatic cyst. Remaining CT lumbar spine is again negative.
--- NOTE | 2022-06-28 11:12 | ERPHSYRPT ---
- History of Present Illness Time Seen by Provider: 06/28/22 11:07 Source: patient Exam Limitations: no limitations Patient Subjective Stated Complaint: PT WAS BROUGHT DOWN HERE FROM OUTPT SURGERY BY PTS REQUEST FOR LOWER BACK PAIN, PT HAS A COLONSCOPY TODAY. PT STATE AT 1999 LAST NIGHT SHE WAS GOING TO BATHROOM AND JUMPED OVER HER DOG AND NOW HER LOWER BACK HURTS, Triage Nursing Assessment: PT ARRIVED PER . ABLE TO TRANSER FROM TO BED, ALERT, RESP EASY, SKIN W/D/P.NO BRUISING OR ABRASIONS NOTED, Physician History: Patient is a 56-year-old white female who presents with a complaint of low back pain. She was originally here at the hospital for a colonoscopy which was done she received ketamine propofol Versed and at the end of the procedure before discharge requested a visit to the ER for low back pain. She says that at 8 PM last night she was injured when she fell over her dog tripped twisting her lower back she has some pain down the right leg. Timing/Duration: yesterday Method of Injury: fall, twisted Quality: burning Back Pain Location: lumbar spine Back Pain Radiation: upper legs (Right) Severity of Pain-Max: moderate Severity of Pain-Current: moderate Modifying Factors: Improves With: nothing Associated Symptoms: denies symptoms Previous symptoms: same symptoms as today Allergies/Adverse Reactions: No Known Drug Allergies Allergy (Verified 06/28/22 09:54) Home Medications: Dextroamphetamine/Amphetamine [Adderall 10 mg Tablet] 40 mg PO DAILY 09/12/17 [History] Hx Tetanus, Diphtheria Vaccination/Date Given: No Hx Influenza Vaccination/Date Given: No Hx Pneumococcal Vaccination/Date Given: No Immunizations Up to Date: Yes Travel Risk - International Travel Have you traveled outside of the country in past 3 weeks: No - Coronavirus Screening Are you exhibiting any of the following symptoms?: No Close contact with a COVID-19 positive Pt in past 14-21 Days: No - Vaccine Status Have you recieved a Covid-19 vaccination: No - Review of Systems Constitutional: No Fever, No Chills Eyes: No Symptoms Ears, Nose, & Throat: No Symptoms Respiratory: No Cough, No Dyspnea Cardiac: No Chest Pain, No Edema, No Syncope Abdominal/Gastrointestinal: No Abdominal Pain, No Nausea, No Vomiting, No Diarrhea Genitourinary Symptoms: No Dysuria Musculoskeletal: Back Pain, No Neck Pain Skin: No Rash Neurological: No Dizziness, No Focal Weakness, No Sensory Changes Psychological: No Symptoms Endocrine: No Symptoms All Other Systems: Reviewed and Negative - Past Medical History Pertinent Past Medical History: Yes Neurological History: Migraines ENT History: No Pertinent History Cardiac History: No Pertinent History Respiratory History: No Pertinent History Endocrine Medical History: No Pertinent History Musculoskeletal History: Other GI Medical History: No Pertinent History History: No Pertinent History Psycho-Social History: Attention Deficit Disorder Female Reproductive Disorders: No Pertinent History Other Medical History: right hand numbness from traumatic accident - Past Surgical History Past Surgical History: Yes Neuro Surgical History: No Pertinent History Cardiac: No Pertinent History Respiratory: No Pertinent History Gastrointestinal: No Pertinent History Genitourinary: No Pertinent History Musculoskeletal: Orthopedic Surgery Female Surgical History: Tubal Ligation, Other Other Surgical History: right hand and right shoulder surgeries, bladder tied up - Social History Smoking Status: Current some day smoker How long have you smoked: 2 weeks Exposure to second hand smoke: Yes Drug Use: none Patient Lives Alone: No - Female History Hx Last Menstrual Period: 3 years ago Hx Now: No - Nursing Vital Signs Nursing Vital Signs: Initial Vital Signs Temperature 99.1 F 06/28/22 06:23 Pulse Rate 93 H 06/28/22 06:23 Respiratory Rate 16 06/28/22 06:23 Blood Pressure 109/72 06/28/22 06:23 O2 Sat by Pulse Oximetry 99 06/28/22 06:23 Pain Scale Pain Intensity [Posterior] 6 Pain Intensity [Back] 8 Pain Intensity 8 - Physical Exam General Appearance: no apparent distress, alert Eye Exam: PERRL/EOMI, eyes nml inspection Neck Exam: normal inspection, non-tender, supple, full range of motion, No meningismus, No midline tenderness Respiratory Exam: normal breath sounds, lungs clear, No respiratory distress Cardiovascular Exam: regular rate/rhythm, normal heart sounds Gastrointestinal Exam: soft, No tenderness, No mass Back Exam: vertebral tenderness, muscle spasm, other (Tenderness over the right SI joint) Extremity Exam: normal inspection, normal range of motion, No calf tenderness, No pedal edema Neurologic Exam: alert, oriented x 3, cooperative, 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, normal mood/affect, nml station & gait, sensation nml, No motor deficits Skin Exam: normal color, warm, dry, No rash SpO2 Interpretation: normal SpO2: 96 O2 Delivery: Room Air - Course Nursing assessment & vital signs reviewed: Yes - CT Exams Lumbar Spine CT Interpretation: Other (Degenerative changes) Ordered Tests: Active Orders 24 hr Category Date Time Status LUMBAR SPINE W/O [CT] Stat Exams 06/28/22 10:01 Completed Medication Summary Generic Name Dose Route Start Last Admin Trade Name Freq PRN Reason Stop Dose Admin Lactated Ringer's 1,000 mls @ 50 mls/hr 06/28/22 07:00 06/28/22 06:41 Lactated Ringers IV 07/28/22 06:59 50 mls/hr .Q20H BHARAT Administration Discontinued Medications Generic Name Dose Route Start Last Admin Trade Name Freq PRN Reason Stop Dose Admin Lactated Ringer's Confirm 06/28/22 06:33 Lactated Ringers Administered 06/28/22 06:34 Dose 1,000 mls @ ud IV .STK-MED ONE Ketamine HCl Confirm 06/28/22 08:01 Ketamine Hcl 50 Mg/Ml Administered 06/28/22 08:02 Dose 10 mg .ROUTE .STK-MED ONE Ketorolac Tromethamine Confirm 06/28/22 08:00 Ketorolac Tromethamine 30 Mg/Ml Inj Administered 06/28/22 08:01 Dose 30 mg .ROUTE .STK-MED ONE Lidocaine HCl Confirm 06/28/22 07:16 Lidocaine - Mpf 2% 5 Ml Vial Administered 06/28/22 07:17 Dose 5 ml .ROUTE .STK-MED ONE Midazolam HCl 2 mg 06/28/22 06:57 06/28/22 07:00 Midazolam Hcl 2 Mg/2 Ml Vial IV 06/28/22 06:58 2 mg 1XONLY ONE Administration Propofol Confirm 06/28/22 07:16 Propofol 10 Mg/Ml 20ml Vial Administered 06/28/22 07:17 Dose 200 mg IV .STK-MED ONE - Progress Progress: unchanged - Departure Departure Disposition: Home Clinical Impression: Sciatica Condition: Good Critical Care Time: No Referrals: BERNADETTE MARES [Primary Care Provider] - Instructions: Sciatica (DC) Prescriptions: Prednisone 10 mg [Deltasone 10 mg] 20 mg PO BID #12 tablet Diclofenac Sodium 50 mg [Voltaren 50 mg] 50 mg PO TID 7 Days #21 tablet
--- NOTE | 2022-06-28 11:21 | OP ---
SURGERY DATE/TIME: 06/28/2022 0758 PREOPERATIVE DIAGNOSIS: Screening exam. POSTOPERATIVE DIAGNOSES: 1) Sigmoid colon pedunculated polyp. 2) Sigmoid diverticulosis, mild. PROCEDURE: Colonoscopy with hot snare polypectomy. SURGEON: Dr. Taz Mcginnis. ANESTHESIA: MAC. Medications given by anesthesia department. HISTORY: The patient is a 56-year-old white female presenting now for screening examination. She was appraised of the risks of the procedure including the risk of perforation, phlebitis, untoward reaction to medication, bleeding and missed lesions. The patient verbalized her understanding and desired to have the procedure performed. DESCRIPTION OF PROCEDURE: The patient was given the medications by the anesthesia department. She had continuous pulse oximetry, ECG monitoring, intermittent blood pressure monitoring during the examination. She was placed in the left lateral decubitus position. A digital rectal examination was performed and revealed normal anal sphincter tone and no masses. The flexible Olympus pediatric colonoscope was used to intubate the rectum. A view of the colon was developed sequentially to the cecum. Upon insertion and withdrawal, including a retroflex view in the rectum, was noted approximately 1.5 cm pedunculated polyp in the sigmoid colon which was removed using hot polypectomy snare and retrieved for pathologic evaluation. There was also noted to be mild sigmoid diverticulosis otherwise no other mucosal lesions being encountered the scope was removed from the patient who tolerated the procedure well and sent back to outpatient recovery in good condition. The prep was noted to be fair to good.
[2022-06-28 11:32] VITALS: BP 101/68; PULSE 78; O2SAT 98
== END 2022-06-28 11:33 | disposition home or self-care (01) ==
LOC: EDSTATUS 09:39 → ED 09:39
DX: Z12.11 Encounter for screening for malignant neoplasm of colon (principal); D12.5 Benign neoplasm of sigmoid colon; K57.30 Diverticulosis of large intestine without perforation or abscess without bleeding; M54.50 Low back pain, unspecified; W18.30XA Fall on same level, unspecified, initial encounter; Z79.899 Other long term (current) drug therapy; Z72.0 Tobacco use; Z20.828 Contact with and (suspected) exposure to other viral communicable diseases
CPT/HCPCS: 72131; 96374; 99283; J1885; J2250; J2704